=== PATIENT | female | born 1970 | race Caucasian/White ===

== ENCOUNTER 2017-03-07 10:50 | Day surgery (SDC) | payer OTHER ==
[~2017-03-07] VITALS: Ht 157.5 cm; Wt 49.0 kg
[~2017-03-07 10:50] MED LIST: BUPIVACAINE/PF-EPI 0.25% 1:200K ONE
[2017-03-07] MEDS ORDERED: LACTATED RINGERS 1,000 ML IV SCH (11:18)
[2017-03-07] MEDS ORDERED: LIDOCAINE 1%, 2ML ONE (11:34)
[2017-03-07 11:51] VITALS: BP 102/68
[2017-03-07] MEDS ORDERED: IBUP200C8 PO (11:51)
[2017-03-07] MEDS ORDERED: MULT-6 PO (11:51)
[2017-03-07 12:12] LABS: BLOOD UREA NITROGEN 9 mg/dL (7-18)
[2017-03-07 12:16] LABS: ASPARTATE AMINO TRANSFERASE 19 U/L (15-37)
[2017-03-07 12:17] LABS: HCG UR OBC PASS
[2017-03-07] MEDS ORDERED: PROPOFOL 10 MG/ML, 20ML ONE (12:18)
[2017-03-07] MEDS ORDERED: CEFAZOLIN 1,000 MG ONE (12:18)
[2017-03-07] MEDS ORDERED: MIDAZOLAM 1 MG/ML, 2ML ONE (12:20)
[2017-03-07] MEDS ORDERED: FENTANYL PF 250 MCG/5ML ONE (12:20)
[2017-03-07] MEDS ORDERED: BUPIVACAINE/PF-EPI 0.25% 1:200K ONE ×2 (12:22→12:24)
[2017-03-07] MEDS ORDERED: BUPIVACAINE/PF-EPI 0.25% 1:200K INFIL ONE (12:39)
[2017-03-07] MEDS ORDERED: HYDROmorphone 1 MG/ML, 1ML IV PRN (13:00)
[2017-03-07] MEDS ORDERED: LABETALOL 5MG/ML, 20ML IV PRN (13:00)
[2017-03-07] MEDS ORDERED: OXYcodone 5 MG/5 ML ORAL.SOL UDC PO PRN (13:00)
[2017-03-07] MEDS ORDERED: METOCLOPRAMIDE 5 MG/ML, 2ML IV PRN (13:00)
[2017-03-07] MEDS ORDERED: ACETAMINOPHEN 325 MG TABLET PO PRN (13:00)
[2017-03-07] MEDS ORDERED: FENTANYL PF 100 MCG/2ML IV PRN (13:00)
[2017-03-07] MEDS ORDERED: ONDANSETRON 2MG/ML, 2ML IVPush PRN (13:00)
[2017-03-07] MEDS ORDERED: hydrALAzine 20 MG/ML, 1ML IV PRN (13:00)
[2017-03-07] MEDS ORDERED: OXYcodone 5 MG/5 ML ORAL.SOL UDC ONE (13:35)
[2017-03-07] MEDS ORDERED: ACETAMINOPHEN 650 MG/20.3 ML UDC ONE (13:35)
[2017-03-07] MEDS ORDERED: KETOROLAC 30 MG/1 ML ONE (14:04)
[2017-03-07] MEDS ORDERED: KETOROLAC 30 MG/1 ML IVPush PRN (14:30)
[2017-03-07] MEDS ORDERED: ONDANSETRON ODT 4 MG PO ONE (14:55)
[2017-03-07] MEDS ORDERED: ONDANSETRON ODT 4 MG ONE (14:57)
== END 2017-03-07 14:55 | disposition home or self-care (01) ==
LOC: OUT 10:50
PROVIDERS: ATTEND Surgery
DX: C43.72 Malignant melanoma of left lower limb, including hip (principal); Z72.89 Other problems related to lifestyle; Z87.891 Personal history of nicotine dependence; Z83.3 Family history of diabetes mellitus; Z82.49 Family history of ischemic heart disease and other diseases of the circulatory system
CPT/HCPCS: 11600; 12031; 36415; 80053; 81025; 85025; 85610; 88307; J0690; J1885; J2250; J2704; J3010; J7120; Q0162

== ENCOUNTER 2017-03-17 23:29 | Outpatient (CLI) | payer OTHER ==
[~2017-03-17 23:29] MED LIST changes: -BUPIVACAINE/PF-EPI 0.25% 1:200K ONE; +IBUP200C8 PO; +MULT-6 PO
== END 2017-03-17 23:33 | disposition home or self-care (01) ==
LOC: LDOP 23:29
PROVIDERS: ATTEND Student in an Organized Health Care Education/Training Program
DX: Z02.9 Encounter for administrative examinations, unspecified (principal)